=== PATIENT | female | born 1955 | race Native Hawaiian/Other Pacific Islander ===

== ENCOUNTER 2023-07-04 12:48 | Emergency (ER) | payer MEDICAID ==
[~2023-07-04] VITALS: Ht 165.1 cm; Wt 74.4 kg
[~2023-07-04 12:48] MED LIST: ACET-1603 PO; ASPI-543 PO; ASPI1TAB20 PO; BRIM EACHEYE; CARV12.544 PO; CEPH-509 PO; DORZ2SOL17 EACHEYE; METO25TA5 PO; NITR400A5 TL; ONDA-144 PO; PRED1SUS31 EACHEYE; SEVE800T PO
[2023-07-04 14:08] LABS: Basophils # (auto) 0 10 ^3/uL (0-0.2); Basophils % (auto) 0.6 % (0.0-2.0); Eosinophils # (auto) 0.1 10 ^3/uL (0-0.8); Eosinophils % (auto) 2.1 % (0.0-7.0); Hematocrit 31.5 % (36.0-46.0); Hemoglobin 9.9 g/dL (12.2-16.2); Lymphocytes % (auto) 22.6 % (10.0-50.0); Mean Corpuscular Hemoglobin 31.8 pg (28.0-32.0); Mean Corpuscular Hgb Conc. 31.5 g/dL (32.0-36.0); Mean Corpuscular Volume 101.1 fL (80.0-100.0); Monocytes # (auto) 0.5 10 ^3/uL (0-1.3); Neutrophils # (auto) 2.8 10 ^3/uL (1.6-8.6); Neutrophils % (auto) 62.7 % (37.0-80.0); Nucleated Red Blood Cells % 0.1 %; Red Blood Cells 3.11 10^6/uL (4.0-5.20); Red Cell Distribution Width 15.3 % (11.8-14.3); White Blood Cell 4.4 10^3/uL (4.4-10.8)
[2023-07-04 14:23] LABS: Alanine Aminotransferase < 9 U/L (7-40); Albumin 4.3 g/dL (3.2-4.8); Alkaline Phosphatase 346 U/L (46-116); Anion Gap 8 (5-15); Aspartate Aminotransferase 16 U/L (13-40); BUN/Creatinine Ratio 4.3 (10.0-20.0); Bilirubin, Total 0.5 mg/dL (0.2-1.0); Blood Urea Nitrogen 21 mg/dL (9-23); Calcium 8.5 mg/dL (8.7-10.4); Carbon Dioxide 22 mmol/L (20-30); Chloride 107 mmol/L (98-107); Glucose 99 mg/dL (74-106); Lipase 41 U/L (12-53); Potassium 3.7 mmol/L (3.5-5.1); Sodium 137 mmol/L (136-145); Total Protein 7.7 g/dL (5.7-8.2)
[2023-07-04 14:39] LABS: CRP High Sensitivity 0.04 mg/dL (<1.0)
[2023-07-04 14:42] LABS: Erythrocyte Sedimentation Rate 30 mm/hr (0-20)
[2023-07-04 19:49] VITALS: BP 143/68; PULSE 70; RESP 14; TEMP 97.7; O2SAT 99
[2023-07-04] MEDS ORDERED: CEPH500C PO (21:24)
== END 2023-07-04 22:08 | disposition home or self-care (01) ==
LOC: ER 12:48
DX: S90.122A Contusion of left lesser toe(s) without damage to nail, initial encounter (principal); D69.6 Thrombocytopenia, unspecified; D64.9 Anemia, unspecified; I82.890 Acute embolism and thrombosis of other specified veins; E11.22 Type 2 diabetes mellitus with diabetic chronic kidney disease; I12.0 Hypertensive chronic kidney disease with stage 5 chronic kidney disease or end stage renal disease; N18.6 End stage renal disease; Z98.890 Other specified postprocedural states; Z79.899 Other long term (current) drug therapy; Z88.8 Allergy status to other drugs, medicaments and biological substances; X58.XXXA Exposure to other specified factors, initial encounter; Y93.89 Activity, other specified; Y92.89 Other specified places as the place of occurrence of the external cause; Y99.8 Other external cause status
CPT/HCPCS: 36415; 80053; 82962; 83605; 83690; 83880; 84484; 85025; 85652; 86141; 93971